=== PATIENT | female | born 1955 | race Caucasian/White ===

== ENCOUNTER 2016-08-15 01:15 | Emergency (ER) | payer MEDICARE, OTHER ==
--- NOTE | ~2016-08-15 | CT98 ---
[facility] A Service of [facility] RADIOLOGY TEXT RESULTS PATIENT: SELINA BARBA LOCATION: [facility] : 59 UNIT #: [id number] AGE: [address]: Sergio Duran MD SEX: F ORDER DR: [id number] [facility] [address] [place], [place] [address] [id number] E MR#: [id number] Acc #: [id number] NAME: SELINA BARBA : 1955 SEX: F STUDY DATE/TIME: 08/15/2016 05:22 UNIT: [facility] ROOM: STUDY DESCRIPTION: CT Lumbar Spine Wo Cont Attending Physician: Sergio Duran M.D. Ordering Physician: Pietro Hayes M.D. Primary Care Physician: Xavi Oseguera II., M.D. MEDICAL IMAGING REPORT This report is preliminary unless electronic signature is present EXAM Lumbar spine CT 08/15/2016 at 05:22 INDICATION Low back pain for 6 days after a fall. Abnormal radiographs today showing an L1 compression fracture. TECHNIQUE Axial images were obtained through the lumbar spine without contrast. Multiplanar reformats were obtained. Comparison made with lumbar CT from 05/06/2010. This CT examination was performed with one or more of the following radiation dose reduction techniques: automatic exposure control, adjustment of mA and/or kV according to patient size, and iterative reconstruction. FINDINGS Subtle anterolisthesis of L5 on S1 is unchanged. There is an acute L1 compression fracture. It has about 40% loss of height centrally. There are 2-3 mm of retropulsion of the posterior-superior endplate into the spinal canal but there is not a significant degree of central stenosis. The fracture does not extended into the pedicles. No other acute fractures are seen. There is multilevel facet arthropathy. No significant central canal stenosis is seen. There is mild multilevel neural foraminal narrowing due to disc material in lateral recesses. There is also narrowing of the left L5-S1 foramen secondary to fairly pronounced facet arthropathy in this location. IMPRESSION 1. There is an acute compression fracture of L1 with about 40% loss of height centrally. There are 2-3 mm of retropulsion of the posterior-superior endplate into the central canal, but there is no significant central stenosis at this or any other level. The fracture [facility] A Service of [facility] RADIOLOGY TEXT RESULTS PATIENT: SELINA BARBA LOCATION: [facility] : 59 UNIT #: [id number] AGE: [address]: Sergio Duran MD SEX: F ORDER DR: does not involve the pedicles. 2. Multilevel degenerative disease and mild L5-S1 spondylolisthesis are relatively stable from the prior exam. Dictated by... Lawson Giang Jr., M.D. THIS IS AN ELECTRONICALLY VERIFIED REPORT Lawson Giang Jr., M.D. at 08/15/2016 10:17 PM JOEL/katie TD: 08/15/2016 06:48 JOB #: [id number] MEDICAL IMAGING REPORT Page 1 of 1 COPY
--- NOTE | ~2016-08-15 | CR243 ---
[facility] A Service of [facility] RADIOLOGY TEXT RESULTS PATIENT: SELINA BARBA LOCATION: [facility] : 59 UNIT #: [id number] AGE: [address]: Sergio Duran MD SEX: F ORDER DR: [id number] [facility] [address] [place], [place] [address] [id number] E MR#: [id number] Acc #: [id number] NAME: SELINA BARBA : 1955 SEX: F STUDY DATE/TIME: 08/15/2016 02:07 UNIT: [facility] ROOM: STUDY DESCRIPTION: CR Thoracic Spine 3 Views Attending Physician: Pietro Hayes M.D. Ordering Physician: Pietro Hayes M.D. Primary Care Physician: Xavi Oseguera II., M.D. MEDICAL IMAGING REPORT This report is preliminary unless electronic signature is present EXAM Thoracic spine, 08/15/2016 at 02:07 INDICATION Back pain after fall 6 days ago. FINDINGS 3 views of the thoracic spine were obtained. Bridging osteophytes are seen throughout the thoracic spine. There is an old T3 compression fracture, also seen on chest x-ray from 01/15/2012. There is an age indeterminate L1 compression fracture, possibly acute. Please see the lumbar spine report from today. No other fractures are seen. IMPRESSION Diffuse degenerative disease with an old T3 compression fracture. There is an age indeterminate and possibly acute fracture of L1. Please see the lumbar report from today. Dictated by... Lawson Giang Jr., M.D. THIS IS AN ELECTRONICALLY VERIFIED REPORT Lawson Giang Jr., M.D. at 08/15/2016 6:26 AM JOEL/finn TD: 08/15/2016 04:44 JOB #: [id number] MEDICAL IMAGING REPORT Page 1 of 1 COPY
--- NOTE | ~2016-08-15 | CR181 ---
[facility] A Service of [facility] RADIOLOGY TEXT RESULTS PATIENT: SELINA BARBA LOCATION: [facility] : 59 UNIT #: [id number] AGE: [address]: Sergio Duran MD SEX: F ORDER DR: [id number] [facility] [address] [place], [place] [address] [id number] E MR#: [id number] Acc #: [id number] NAME: SELINA BARBA : 1955 SEX: F STUDY DATE/TIME: 08/15/2016 02:03 UNIT: [place] ROOM: STUDY DESCRIPTION: CR Lumbar Spine 2 or 3 Views Attending Physician: Pietro Hayes M.D. Ordering Physician: Pietro Hayes M.D. Primary Care Physician: Xavi Oseguera II., M.D. MEDICAL IMAGING REPORT This report is preliminary unless electronic signature is present EXAM Lumbar spine, 08/15/2016 at 02:03 INDICATION Persistent low back pain after fall 6 days ago. FINDINGS 3 views of the lumbar spine are compared with CT lumbar spine dated 05/06/2010. There is grade 1 anterolisthesis of L5 on S1. There is an age indeterminate compression fracture of L1. This is new since the prior CT, however and could be acute. There is less than 50% loss of height. This would be better evaluated with a CT. No other fractures are seen. There is facet arthropathy in the lower lumbar spine. IMPRESSION 1. Degenerative disease with spondylolisthesis at L5-S1. 2. Age indeterminate but potentially acute L1 compression fracture with less than 50% loss of height. This is new since a CT scan from 2010. If the patient has pain referable to this area I would recommend a repeat lumbar spine CT. Dictated by... Lawson Giang Jr., M.D. THIS IS AN ELECTRONICALLY VERIFIED REPORT Lawson Giang Jr., M.D. at 08/15/2016 6:26 AM JOEL/finn TD: 08/15/2016 03:43 JOB #: [id number] [facility] A Service of [facility] & [facility] RADIOLOGY TEXT RESULTS PATIENT: SELINA BARBA LOCATION: [facility] : 59 UNIT #: [id number] AGE: [address]: Sergio Duran MD SEX: F ORDER DR: MEDICAL IMAGING REPORT Page 1 of 1 COPY
--- NOTE | ~2016-08-15 | CR206 ---
[facility] A Service of [facility] RADIOLOGY TEXT RESULTS PATIENT: SELINA BARBA LOCATION: [facility] : 59 UNIT #: [id number] AGE: [address]: Sergio Duran MD SEX: F ORDER DR: [id number] [facility] [address] [place], [place] [address] [id number] E MR#: [id number] Acc #: [id number] NAME: SELINA BARBA : 1955 SEX: F STUDY DATE/TIME: 08/15/2016 02:01 UNIT: [facility] ROOM: STUDY DESCRIPTION: CR Pelvis 1 or 2 Views Attending Physician: Pietro Hayes M.D. Ordering Physician: Pietro Hayes M.D. Primary Care Physician: Xavi Oseguera II., M.D. MEDICAL IMAGING REPORT This report is preliminary unless electronic signature is present EXAM Pelvis, 08/15/2016 at 02:01 INDICATIONS Pelvic and back pain after fall 6 days ago. FINDINGS AP views of the pelvis are compared with 05/04/2010. Patient is osteopenic. There are old left inferior and superior pubic rami fractures. No clear acute fracture is identified. Patient is osteopenic. IMPRESSION No acute fracture or malalignment. There are old left superior and inferior pubic rami fractures. Dictated by... Lawson Giang Jr., M.D. THIS IS AN ELECTRONICALLY VERIFIED REPORT Lawson Giang Jr., M.D. at 08/15/2016 6:25 AM JOEL/finn TD: 08/15/2016 03:40 JOB #: [id number] MEDICAL IMAGING REPORT Page 1 of 1 COPY
[~2016-08-15 01:15] MED LIST: ALDACTONE; ASPIRIN; ASPIRIN EC81 M1 PO; ASPIRINEC PO; CALCIUM + D 6001 TA1 PO; CALCIUM 500 + D1 TAB; CARBATROL300 MG; CARBATROL300 MG PO; CENTRUM240 ML; CLARINEX5 MG; DILANTIN; DILANTIN PO; FERROUS SULFATE PO; HYDROCODON-ACE1 EAC4 PO; KEPPRA500 M1 PO; KEPPRA750 MG PO; KLONOPIN PO; LIPITOR PO; LORTAB 5/500 TA1 TA1 PO; LOVENOX40 MG/0.4 INJ; MUCINEX DM1 TAB.SR . PO; NASONEX17 GM; NORCO 10/325 TA1 TAB PO; PERCOCET PO; PHENOBARB; PHENOBARB PO; PHENOBARBITAL60 M1 PO; PREDNISONE PO; SYMBICORT INH; SYNTHROID PO; TETRACYCLINE PO; THERALITH XR T1 EACH PO; VIT B12; VIT C PO; VITAMIN C PO; WALGREEN'S PHARMACY; XOPENEX1.25 MG/0. INH; ZYRTEC; [UNRECOGNIZED DRUG - OTHER] PO
[2016-08-15 03:37] LABS: URINE SOURCE CLEAN CATCH
[2016-08-15 03:44] LABS: URINE APPEARANCE CLOUDY; URINE BILIRUBIN NEG (NEG); URINE BLOOD NEG (NEG); URINE COLOR YELLOW; URINE GLUCOSE NEG (NEG); URINE KETONE 2+ (NEG); URINE LEUKOCYTE ESTERASE TRACE (NEG); URINE NITRATE NEG (NEG); URINE PH 6.5 (5-8); URINE PROTEIN TRACE (NEG); URINE SPECIFIC GRAVITY 1.012 (1.003-1.035); URINE UROBILINOGEN 0.2 MG/DL (NEG)
[2016-08-15 03:46] LABS: CULTURE INDICATED? YES; URINE BACTERIA AUWI NEG (NEGATIVE); URINE SQUAMOUS EPITHELIAL CELL FEW /[HPF]
== END 2016-08-15 09:18 | disposition home or self-care (01) ==
LOC: CED 01:15
PROVIDERS: Emergency Medicine
DX: S32.029A Unspecified fracture of second lumbar vertebra, initial encounter for closed fracture (principal); G47.30 Sleep apnea, unspecified; F17.210 Nicotine dependence, cigarettes, uncomplicated; W19.XXXA Unspecified fall, initial encounter
CPT/HCPCS: 51701; 72072; 72100; 72131; 72170; 81003; 87086; 99284

== ENCOUNTER 2017-01-10 00:12 | Emergency (ER) | payer MEDICARE, OTHER ==
[~2017-01-10] VITALS: Ht 160 cm; Wt 65.8 kg
--- NOTE | ~2017-01-10 | CR181 ---
[facility] A Service of [facility] RADIOLOGY TEXT RESULTS PATIENT: SELINA BARBA LOCATION: [facility] : 59 UNIT #: [id number] AGE: [address]: Rola Weller MD SEX: F ORDER DR: [id number] [facility] [address] [place], [place] [address] [id number] E MR#: [id number] Acc #: [id number] NAME: SELINA BARBA : 1955 SEX: F STUDY DATE/TIME: 01/10/2017 2:14 UNIT: [facility] ROOM: STUDY DESCRIPTION: CR Lumbar Spine 2 or 3 Views Attending Physician: Rola Weller M.D. Ordering Physician: Ricardo Ramos M.D. Primary Care Physician: Xavi Oseguera II., M.D. MEDICAL IMAGING REPORT This report is preliminary unless electronic signature is present EXAM Lumbar spine series INDICATIONS Lower back pain today. PROCEDURE Three views of the lumbar spine. COMPARISON 08/15/2016 FINDINGS Interval progression of the L1 compression fracture, now with greater than 50% loss of vertebral body height. This is new compared with 08/15/2016. Sacroiliac joints are symmetric. There is multilevel degenerative change. IMPRESSION 1. The L1 compression fracture has progressed since the 08/15/2016 study, now with greater than 50% loss of vertebral body height. 2. Multilevel degenerative change. Dictated by... Rashad Rowe M.D. THIS IS AN ELECTRONICALLY VERIFIED REPORT Rashad Rowe M.D. at 01/14/2017 8:55 AM EED/psc TD: 01/10/2017 10:38 JOB #: [id number] [facility] A Service [facility] RADIOLOGY TEXT RESULTS PATIENT: SELINA BARBA LOCATION: [facility] : 59 UNIT #: [id number] AGE: [address]: Rola Weller MD SEX: F ORDER DR: MEDICAL IMAGING REPORT Page 1 of 1 COPY
--- NOTE | ~2017-01-10 | CT71 ---
[facility] A Service [facility] RADIOLOGY TEXT RESULTS PATIENT: SELINA BARBA LOCATION: [facility] : 59 UNIT #: [id number] AGE: [address]: Rola Weller MD SEX: F ORDER DR: [id number] [address] [address] [place], [place] [address] [id number] E MR#: [id number] Acc #: [id number] NAME: SELINA BARBA : 1955 SEX: F STUDY DATE/TIME: 01/10/2017 2:31 UNIT: [facility] ROOM: STUDY DESCRIPTION: CT Head Wo Contrast Attending Physician: Rola Weller M.D. Ordering Physician: Ricardo Ramos M.D. Primary Care Physician: Xavi Oseguera II., M.D. MEDICAL IMAGING REPORT This report is preliminary unless electronic signature is present EXAM CT head without contrast. INDICATIONS Headache today. PROCEDURE Unenhanced CT head. This CT exam was performed with one or more of the following radiation dose reduction techniques: automatic exposure control, adjustment of mA and/or kV according to patient size, and iterative reconstruction. COMPARISON 08/02/2007. FINDINGS No acute hemorrhage, abnormal mass effect, extraaxial fluid collection or hydrocephalus. No depressed calvarial fracture. IMPRESSION No acute intracranial findings. Dictated by... Rashad Rowe M.D. THIS IS AN ELECTRONICALLY VERIFIED REPORT Rashad Rowe M.D. at 01/14/2017 8:55 AM EED/gz TD: 01/10/2017 10:35 JOB #: [id number] [facility] A Service [facility] RADIOLOGY TEXT RESULTS PATIENT: SELINA BARBA LOCATION: [facility] : 59 UNIT #: [id number] AGE: [address]: Rola Weller MD SEX: F ORDER DR: MEDICAL IMAGING REPORT Page 1 of 1 COPY
--- NOTE | ~2017-01-10 | CT52 ---
[facility] A Service of [facility] RADIOLOGY TEXT RESULTS PATIENT: SELINA BARBA LOCATION: [facility] : 59 UNIT #: [id number] AGE: [address]: Rola Weller MD SEX: F ORDER DR: [id number] [facility] [address] [place], [place] [address] [id number] E MR#: [id number] Acc #: [id number] NAME: SELINA BARBA : 1955 SEX: F STUDY DATE/TIME: 01/10/2017 1:01 UNIT: [facility] ROOM: STUDY DESCRIPTION: CT Cervical Spine Wo Cont Attending Physician: Rola Weller M.D. Ordering Physician: Ricardo Ramos M.D. Primary Care Physician: Xavi Oseguera II., M.D. MEDICAL IMAGING REPORT This report is preliminary unless electronic signature is present EXAM CT cervical spine without contrast HISTORY Neck pain after a fall tonight. PROCEDURE Unenhanced CT of the cervical spine. This CT exam was performed with one or more of the following radiation dose reduction techniques: Automatic exposure control, adjustment of mA and/or kV according to patient size, and iterative reconstruction. COMPARISON None. FINDINGS The cervical bodies have normal height. Alignment is preserved. Craniocervical junction and the dens are intact. Mild multilevel degenerative change. No fracture. No critical central canal narrowing. IMPRESSION No acute findings. Dictated by... Rashad Rowe M.D. THIS IS AN ELECTRONICALLY VERIFIED REPORT Rashad Rowe M.D. at 01/14/2017 8:55 AM EED/aa TD: 01/10/2017 10:47 JOB #: [id number] [facility] A Service [facility] RADIOLOGY TEXT RESULTS PATIENT: SELINA BARBA LOCATION: [facility] : 59 UNIT #: [id number] AGE: [address]: Rola Weller MD SEX: F ORDER DR: MEDICAL IMAGING REPORT Page 1 of 1 COPY
== END 2017-01-10 04:12 | disposition home or self-care (01) ==
LOC: CED 00:12
DX: S39.012A Strain of muscle, fascia and tendon of lower back, initial encounter (principal); S00.93XA Contusion of unspecified part of head, initial encounter; Z79.899 Other long term (current) drug therapy; Z88.0 Allergy status to penicillin; Z88.2 Allergy status to sulfonamides; W01.198A Fall on same level from slipping, tripping and stumbling with subsequent striking against other object, initial encounter
CPT/HCPCS: 70450; 72100; 72125; 96372; 99284; J1885